=== PATIENT | female | born 1985 | race Caucasian/White ===

== ENCOUNTER 2020-03-29 13:01 | Emergency (ER) | payer BC ==
[2020-03-29 13:10] VITALS: BP 139/82
== END 2020-03-29 14:20 | disposition home or self-care (01) ==
LOC: ED 13:01
DX: S61.412A Laceration without foreign body of left hand, initial encounter (principal); Z88.1 Allergy status to other antibiotic agents; W26.0XXA Contact with knife, initial encounter
CPT/HCPCS: 90714